=== PATIENT | male | born 1935 | race African-American/Black ===

== ENCOUNTER 2017-08-15 19:46 | Inpatient (IN) | payer MEDICARE, BC ==
[~2017-08-15] VITALS: Ht 167.6 cm; Wt 83.5 kg
[~2017-08-15 19:46] MED LIST: CLOP75TA15 PO; LANTUS INSULIN SQ; METO50TA7 PO; PIOG30TA10 PO; VALS80TA2 PO
[2017-08-15] MEDS ORDERED: VICTOZA (20:24)
[2017-08-15] MEDS ORDERED: CYAN10009 PO (20:24)
[2017-08-15] MEDS ORDERED: ROSU20TA PO (20:24)
[2017-08-15] MEDS ORDERED: ASPI81TA31 PO (20:33)
[2017-08-15] MEDS ORDERED: TRIAMTERENE PO (20:33)
[2017-08-15] MEDS ORDERED: INSU100V7 SQ (20:33)
[2017-08-15] MEDS ORDERED: ESOM40CA PO (20:33)
[2017-08-15 21:17] LABS: BASOPHILS % (AUTO) 0.6 % (0.0-2.0); EOSINOPHILS % (AUTO) 0.5 % (0.0-7.0); HEMATOCRIT 36.1 % (36.7-47.1); HEMOGLOBIN 12.2 g/dL (12.5-16.3); LYMPHOCYTES % (AUTO) 22.3 % (20.5-51.5); MEAN CORPUSCULAR HEMOGLOBIN 31.8 uug (23.8-33.4); MEAN CORPUSCULAR HGB CONC 34 g/dL (32.5-36.3); MEAN CORPUSCULAR VOLUME 94.4 fL (73.0-96.2); MONOCYTES # (AUTO) 0.5 K/uL (2.0-10.0); MONOCYTES % (AUTO) 11.9 % (0.0-11.0); NEUTROPHILS # (AUTO) 2.9 K/uL (1.8-8.9); NEUTROPHILS % (AUTO) 64.7 % (38.5-71.5); PLATELET COUNT (AUTO) 132 K/uL (152-348); RED BLOOD CELL COUNT(AUTO) 3.82 MIL/uL (4.06-5.63); WHITE BLOOD COUNT (AUTO) 4.4 K/uL (3.6-10.2)
[2017-08-15 21:23] LABS: CARBON DIOXIDE 29 mmol/L (21-32); CHLORIDE 102 mmol/L (98-107); CREATININE 1.7 mg/dL (0.6-1.3); GLUCOSE 235 mg/dL (74-106); POTASSIUM 4.1 mmol/L (3.5-5.1); UREA NITROGEN, BLOOD 36 mg/dL (7-18)
[2017-08-15 21:29] LABS: ALANINE AMINOTRANSFERASE 19 U/L (16-63); ALKALINE PHOSPHATASE 134 U/L (50-136); ASPARTATE AMINOTRANSFERASE 29 U/L (15-37); BILIRUBIN,DIRECT 0.1 mg/dL (0.0-0.2); BILIRUBIN,TOTAL 0.3 mg/dL (0.2-1.0); TOTAL PROTEIN, SERUM 6.9 g/dL (6.4-8.2)
[2017-08-15 21:38] LABS: *BILIRUBIN,URIN NEGATIVE (NEGATIVE); *BLOOD, URINE NEGATIVE (NEGATIVE); *CLARITY,URINE CLEAR (CLEAR); *COLOR,URINE YELLOW (YELLOW); *KETONES,URINE NEGATIVE (NEGATIVE); *PROTEIN,URINE NEGATIVE (NEGATIVE); *UROBILINOGEN,URINE 0.2 E.U./dl (NORMAL); LEUKOCYTE ESTERASE ,URINE NEGATIVE (NEGATIVE); NITRITE, URINE NEGATIVE (NEGATIVE); PH,URINE 5.5 (5.0-8.0)
[2017-08-15 21:39] LABS: UGLUCOSE 2+ (NEGATIVE)
[2017-08-15 21:46] LABS: WBC,URINE 0-3 /HPF (0-3)
[2017-08-15 21:47] LABS: MUCUS,URINE MODERATE /LPF (0-FEW)
[2017-08-15] MEDS ORDERED: INSULIN REGULAR, HUMAN 300 UNITS/3 ML VIAL SQ PRN (23:30)
[2017-08-15] MEDS ORDERED: DEXTROSE 50% 50 ML DISP.SYRIN IV PRN (23:30)
[2017-08-15] MEDS ORDERED: ACETAMINOPHEN 325 MG TABLET PO PRN (23:45)
[2017-08-15] MEDS ORDERED: ONDANSETRON 4 MG/2 ML VIAL IV PRN (23:45)
[2017-08-15] MEDS ORDERED: HYDROCODONE/APAP 5-325MG TABLET PO PRN (23:45)
[2017-08-15] MEDS ORDERED: IV NS 1000 ML 1,000 ML IV SCH (23:45)
--- NOTE | 2017-08-16 00:30 | NUR ---
PT HAD A WITNESSED SYNCOPAL EPISODE SAT. AM W/ASSOCIATED FALL. XRAY SHOWS HAIRLINE RT ANKLE FRACTURE. ANKLE SPLINTED. CARDIAC W/U NEGATIVE. ADMITTED FOR OBSERVATION. REPORT TO [facility].
[2017-08-16 01:15] VITALS: BP 123/51
--- NOTE | 2017-08-16 01:15 | NUR ---
ADMITTED NEW PATIENT TO ROOM 205, ALERT,ORIENTED X 4, IN NO ACUTE DISTRESS,C/O FELL BACKWARD WHILE STANDING,SPEAKING AT MU-ISM,LOSE OF CONSCIOUSNESS,C/O PAIN TO RIGHT ANKLE AND SWELLING,PATIENT HAS SHORT LEG POSTERIOR SPLINT ON, SKIN WARM,DENIES DIZZINESS,NO SOB, NO NAUSEA OR CHEST PAIN NOTED,NSR ON MONITOR,INSTRUCTED PATIENT TO CALL FOR ASSISTANCE, FALL PRECAUTIONS,CLOSELY MONITOR.
[2017-08-16 04:00] VITALS: BP 109/48
[2017-08-16] MEDS: BLOOD SUGAR DIAGNOSTIC 1 EACH STRIP VI SCH ×2 (05:58→11:37)
--- NOTE | 2017-08-16 06:20 | NUR ---
PATIENT SLEEP WELL,BLOOD SUGAR LHHZ=[id number], PATIENT REFUSED TYLENOL PO WHEN OFFER,STATED MILD PAIN AND CAN BE TOLERATED W/O MEDICATION.
--- NOTE | 2017-08-16 07:00 | NUR ---
Received client in bed awake, alert and oriented times 4 in bed with the HOB at a semi fowlers positions. No signs and symptoms of SOB, pain, distress or discomfort. IV hydration running at this time, no apparent signs of infiltration, leaking, bleeding or infection. Bed is at lowest position and call light within reach for assistance.
[2017-08-16 07:18] LABS: BASOPHILS % (AUTO) 0.5 % (0.0-2.0); EOSINOPHILS # (AUTO) 0.1 K/uL (0.0-0.7); EOSINOPHILS % (AUTO) 1.9 % (0.0-7.0); HEMATOCRIT 32.9 % (36.7-47.1); LYMPHOCYTES # (AUTO) 1.1 K/uL (20.0-40.0); LYMPHOCYTES % (AUTO) 27.5 % (20.5-51.5); MEAN CORPUSCULAR HEMOGLOBIN 31.3 uug (23.8-33.4); MEAN CORPUSCULAR HGB CONC 34 g/dL (32.5-36.3); MEAN CORPUSCULAR VOLUME 93.5 fL (73.0-96.2); MONOCYTES # (AUTO) 0.6 K/uL (2.0-10.0); MONOCYTES % (AUTO) 15.3 % (0.0-11.0); NEUTROPHILS # (AUTO) 2.3 K/uL (1.8-8.9); NEUTROPHILS % (AUTO) 54.8 % (38.5-71.5); PLATELET COUNT (AUTO) 119 K/uL (152-348); RED BLOOD CELL COUNT(AUTO) 3.52 MIL/uL (4.06-5.63); WHITE BLOOD COUNT (AUTO) 4.2 K/uL (3.6-10.2)
[2017-08-16 07:33] LABS: CARBON DIOXIDE 26 mmol/L (21-32); CHLORIDE 108 mmol/L (98-107); CHOLESTEROL 99 mg/dL (<200); CREATININE 1.5 mg/dL (0.6-1.3); GLUCOSE 207 mg/dL (74-106); HDL CHOLESTEROL 58 mg/dL (40-60); MAGNESIUM 1.7 mg/dL (1.8-2.4); POTASSIUM 3.8 mmol/L (3.5-5.1); TRIGLYCERIDES 73 MG/DL (30-150); UREA NITROGEN, BLOOD 31 mg/dL (7-18)
[2017-08-16] MEDS ORDERED: PANTOPRAZOLE SODIUM 40 MG TABLET.DR PO SCH (08:00)
--- NOTE | 2017-08-16 08:00 | NUR ---
Client refused Reg Humulin insulin, stating he will be discharged today and will use his Lantus at home. Education was given on the importance of covering his accu ck this morning of 199. Offered twice and explained risk and benefits, client still refused
[2017-08-16] MEDS: INSULIN REGULAR, HUMAN 300 UNIT/3 ML VIAL SQ PRN ×2 (08:27→11:42)
[2017-08-16 08:44] LABS: BASOPHILS % (MANUAL) 2 % (0-2); EOSINOPHILS % (MANUAL) 1 % (0-8); LYMPHOCYTES % (MANUAL) 32 % (20-40); MONOCYTES % (MANUAL) 11 % (2-10); NEUTROPHILS % (MANUAL) 54 % (42-75)
[2017-08-16] MEDS ORDERED: METOPROLOL SUCCINATE XL 50 MG TAB.SR.24H PO SCH (09:00)
[2017-08-16] MEDS ORDERED: PIOGLITAZONE HCL 30 MG TABLET PO SCH (09:00)
[2017-08-16] MEDS ORDERED: Medication Not On Formulary EA (Esomeprazole Mag Trihydrate (Nexium) 40 MG) PO SCH (09:00)
[2017-08-16] MEDS ORDERED: VALSARTAN 80 MG TABLET PO SCH (09:00)
[2017-08-16] MEDS ORDERED: Medication Not On Formulary EA (Rosuvastatin Calcium (Crestor) 20 MG) PO SCH (09:00)
[2017-08-16] MEDS ORDERED: CLOPIDOGREL 75 MG TABLET PO SCH (09:00)
--- NOTE | 2017-08-16 10:40 | NUR ---
Client was noted in the RR, he was able to walk by himself with no assistance. Assistance was recommended to assess his ambulatory status or if any dizziness was experienced. Client stated 6-7/10 pain but tolerable and refused pain medication. No apparent signs and symptoms of SOB or distress. DVT pump in place for the left leg
[2017-08-16] MEDS ORDERED: MAGNESIUM OXIDE 400 MG TABLET PO ONE (11:15)
[2017-08-16 11:24] VITALS: BP 126/52
--- NOTE | 2017-08-16 11:41 | NUR ---
Client's accu ck was 166. Client refused Reg Insulin.
--- NOTE | 2017-08-16 11:43 | NUR ---
Quad cane provide for client for discharge. Case management provided the cane from [facility]. Discharge orders noted from REGISTERED RESPIRATORY THERAPIST
--- NOTE | 2017-08-16 13:44 | NUR ---
Client has been noted to walk up and down the hallway with physical therapist. Able to ambulate with weight bearing statues as tolerated with assistive device and the guidance of one physical therapist. Client stated he would need no pain medication afterwards. Client will be discharged with discharge orders from [facility].
--- NOTE | 2017-08-16 13:58 | NUR ---
Client refused both Pneumonia and flu vaccine stating he received them about a month ago
--- NOTE | 2017-08-16 14:20 | NUR ---
Client was discharged, client was guided downstairs to lobby via wheelchair with his , friend and myself. Client stated no pain, noted with no discomfort, no distress and no SOB. All personal belonging with him, all discharge papers signed for. A CD was made at radiology regarding his x-rays and provided to the client as requested.
[2017-08-16] MEDS ORDERED: ASPIRIN 81 MG TAB.CHEW PO SCH (18:00)
[2017-08-16] MEDS ORDERED: ATORVASTATIN 40 MG TABLET PO SCH (21:00)
== END 2017-08-16 14:30 | disposition home or self-care (01) | DRG 684 ==
LOC: ER 19:48 → TELE 08-16 00:49
PROVIDERS: ADMIT Nurse Practitioner Acute Care; ATTEND Nurse Practitioner Acute Care
PROC: 2W3QX1Z Immobilization of Right Lower Leg using Splint (ICD-10-PCS; principal; 2017-08-16)
DX: N17.0 Acute kidney failure with tubular necrosis (principal); D69.6 Thrombocytopenia, unspecified; E11.22 Type 2 diabetes mellitus with diabetic chronic kidney disease; E11.65 Type 2 diabetes mellitus with hyperglycemia; E86.0 Dehydration; R55 Syncope and collapse; D63.8 Anemia in other chronic diseases classified elsewhere; S82.51XA Displaced fracture of medial malleolus of right tibia, initial encounter for closed fracture; E78.5 Hyperlipidemia, unspecified; G47.30 Sleep apnea, unspecified; I25.10 Atherosclerotic heart disease of native coronary artery without angina pectoris; T46.5X5A Adverse effect of other antihypertensive drugs, initial encounter; Y92.22 Religious institution as the place of occurrence of the external cause; W18.39XA Other fall on same level, initial encounter; Z79.4 Long term (current) use of insulin; Z85.038 Personal history of other malignant neoplasm of large intestine; Z90.49 Acquired absence of other specified parts of digestive tract; Z95.5 Presence of coronary angioplasty implant and graft; G89.29 Other chronic pain; M54.5 Low back pain; M77.30 Calcaneal spur, unspecified foot; M43.16 Spondylolisthesis, lumbar region; I12.9 Hypertensive chronic kidney disease with stage 1 through stage 4 chronic kidney disease, or unspecified chronic kidney disease; N18.9 Chronic kidney disease, unspecified
CPT/HCPCS: 36415; 70030-TC; 70450; 71045; 72100; 73610; 83735; 84100; 85025; 85730; 93005; A4663; J1815; J7030

== ENCOUNTER 2018-09-10 09:13 | Emergency (ER) | payer MEDICARE, BC ==
[~2018-09-10] VITALS: Ht 167.6 cm; Wt 84.8 kg
[~2018-09-10 09:13] MED LIST changes: +ASPI81TA31 PO; +CYAN10009 PO; +ESOM40CA PO; +INSU100V7 SQ; -LANTUS INSULIN SQ; +ROSU20TA2 PO; +TRIAMTERENE PO; +VICTOZA
--- NOTE | 2018-09-10 09:22 | NUR ---
PT A/OX4, PRESENTS TO THE ER C/O R ELBOW PAIN THAT STARTED ON THURSDAY AFTER OPENING A GARAGE DOOR. PAIN IS PROVOKED UPON MOVEMENT, ACHING IN QUALITY, DOES NOT RADIATE, 6/10, CONSTANT. VSS. NO DEFORMITY TO THE JOINT NOTED. PT DENIES C/P, SOB, N/V/D, DIZZINESS, HEADACHE.
--- NOTE | 2018-09-10 09:31 | NUR ---
KOMAL WYNNE AT BEDSIDE FOR MSE.
--- NOTE | 2018-09-10 10:40 | NUR ---
Patient discharged to home in stable conditon. Written and verbal after care instructions given. Patient verbalizes understanding of instructions. PT D/C W/ PRESCRIPTION. ALL BELONGINGS W/ PT. PT SELF-AMBULATED W/O DIFFICULTY.
[2018-09-10 10:41] VITALS: BP 140/82
== END 2018-09-10 10:42 | disposition home or self-care (01) ==
LOC: ER 09:13
DX: S59.901A Unspecified injury of right elbow, initial encounter (principal); M77.11 Lateral epicondylitis, right elbow; I10 Essential (primary) hypertension; E11.9 Type 2 diabetes mellitus without complications; Z79.82 Long term (current) use of aspirin; Z79.899 Other long term (current) drug therapy; Z79.4 Long term (current) use of insulin; Z79.01 Long term (current) use of anticoagulants; X50.0XXA Overexertion from strenuous movement or load, initial encounter; Y93.89 Activity, other specified; Y92.89 Other specified places as the place of occurrence of the external cause; Y99.8 Other external cause status
CPT/HCPCS: 73080; A4663

== ENCOUNTER 2020-02-23 13:43 | Emergency (ER) | payer MEDICARE, BC ==
[~2020-02-23] VITALS: Ht 160 cm; Wt 78.0 kg
[~2020-02-23 13:43] MED LIST changes: +CYAN-51 PO; -CYAN10009 PO
--- NOTE | 2020-02-23 14:17 | NUR ---
Adjunct Professor Of English assumes care, patient just came back from CT scan, patient is AOx4, calm & reathing easily, NAD.
--- NOTE | 2020-02-23 14:19 | NUR ---
[email or web address], medical screening exam in progress
--- NOTE | 2020-02-23 14:30 | NUR ---
Patient discharged to home in stable condition and steady gait. Written and verbal after care instructions given to patient. Patient verbalized understanding & compliance of instructions. Stressed follow up with primary doctor or return to ER for worsening s/s.
== END 2020-02-23 14:32 | disposition home or self-care (01) ==
LOC: ER 13:43
DX: S09.90XA Unspecified injury of head, initial encounter (principal); W22.8XXA Striking against or struck by other objects, initial encounter; V88.8XXA Person injured in other specified noncollision transport accidents involving motor vehicle, nontraffic, initial encounter; Y92.89 Other specified places as the place of occurrence of the external cause; Z79.02 Long term (current) use of antithrombotics/antiplatelets; I25.10 Atherosclerotic heart disease of native coronary artery without angina pectoris; Z95.5 Presence of coronary angioplasty implant and graft; Z85.038 Personal history of other malignant neoplasm of large intestine; I47.1 Supraventricular tachycardia; E11.9 Type 2 diabetes mellitus without complications; Z79.4 Long term (current) use of insulin; G47.30 Sleep apnea, unspecified
CPT/HCPCS: 70450; A4663